=== PATIENT | female | born 1985 | race Caucasian/White ===

== ENCOUNTER 2017-03-04 14:17 | Emergency (ER) | payer OTHER, BC ==
[2017-03-04 15:12] VITALS: BP 134/85
[2017-03-04] MEDS ORDERED: Ketorolac 30 MG/ML SDV IM ONE (17:26)
[2017-03-04] MEDS ORDERED: Ondansetron 4 MG/2 ML SDV IM ONE (17:27)
[2017-03-04] MEDS ORDERED: Ondansetron 4 MG Tab.DIS PO ONE (17:32)
--- NOTE | 2017-03-05 07:43 | EDM.PDOC ---
Scribed by Eileen Montgomery 03/05/17 0742 for Meagan Tidwell NP ED HPI GENERAL MEDICAL PROBLEM - General Chief Complaint: Upper Extremity Injury/Pain Stated Complaint: R SHOULDER PAIN.WC INJ 08/2016 Time Seen by Provider: 03/04/17 17:15 Source of Information: Reports: Patient, RN, RN Notes Reviewed History Limitations: Reports: No Limitations - History of Present Illness INITIAL COMMENTS - FREE TEXT/NARRATIVE: Patient had increased pain today with nausea which is better when laying down. She always has pain. She had an injury in August at work. She has had injections. She saw orthopedic 2 weeks ago on February 22 and an injection 4 weeks ago on February 09. She was to start therapy today but she cancelled due to pain. Pain is 6/10 with nausea. Duration: Constant, Getting Worse Location: Reports: Upper Extremity, Right Quality: Reports: Ache Severity: Moderate Improves with: Reports: None Worsens with: Reports: None Associated Symptoms: Reports: No Other Symptoms Right Shoulder Pain Score (Numeric/FACES): 8 - Related Data Allergies Allergy/AdvReac Type Severity Reaction Status Date / Time egg Allergy Lightheaded Verified 03/04/17 15:21 ness latex Allergy Rash Verified 03/04/17 15:21 Milk Containing Products Allergy Stomach Verified 03/04/17 15:21 Upset Home Meds: Home Meds Sertraline [Zoloft] 150 mg PO DAILY 02/22/15 [History] Gabapentin [Neurontin] 100 mg PO BEDTIME 01/28/16 [History] PARoxetine [Paxil] 5 mg PO DAILY 02/06/16 [History] traMADol [Ultram] 50 mg PO ASDIRECTED 03/04/17 [History] Past Medical History - Past Health History Medical/Surgical History: Denies Medical/Surgical History HEENT History: Reports: Impaired Vision Cardiovascular History: Reports: Heart Murmur Other Cardiovascular History: irregular heart beat. 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: Musculoskeletal History: Reports: None Other Musculoskeletal History: restless legs Neurological History: Reports: Concussion, Seizure Psychiatric History: Reports: Anxiety, Depression, Panic Attack Endocrine/Metabolic History: Reports: None Hematologic History: Reports: Anemia Dermatologic History: Reports: None - Infectious Disease History Infectious Disease History: Reports: Chicken Pox - Past Surgical History GI Surgical History: Reports: Appendectomy Social & Family History - Family History Family Medical History: Noncontributory - Tobacco Use Smoking Status *Q: Never Smoker Second Hand Smoke Exposure: Yes - Caffeine Use Caffeine Use: Reports: None Other Caffeine Use: 2 bottles /day - Alcohol Use Days Per Week of Alcohol Use: 0 - Recreational Drug Use Recreational Drug Use: No Review of Systems - Review of Systems Review Of Systems: ROS reveals no pertinent complaints other than HPI. ED EXAM, GENERAL - Physical Exam Exam: See Below Exam Limited By: No Limitations General Appearance: Alert, WD/WN, No Apparent Distress Eye Exam: Bilateral Eye: Normal Inspection Ears: Normal External Exam, Normal Canal, Hearing Grossly Normal, Normal TMs Nose: Normal Inspection, Normal Mucosa, No Blood Throat/Mouth: Normal Inspection, Normal Lips, Normal Teeth, Normal Gums, Normal Oropharynx, Normal Voice, No Airway Compromise Head: Atraumatic, Normocephalic Neck: Normal Inspection, Supple, Non-Tender, Full Range of Motion Respiratory/Chest: No Respiratory Distress, Lungs Clear, Normal Breath Sounds, No Accessory Muscle Use, Chest Non-Tender Cardiovascular: Normal Peripheral Pulses, Regular Rate, Rhythm, No Edema, No Gallop, No JVD, No Murmur, No Rub GI/Abdominal: Normal Bowel Sounds (Female) Exam: Deferred Rectal (Female) Exam: Deferred Back Exam: Normal Inspection, Full Range of Motion, NT Extremities: Other (Range of motion decreased at right arm. Can abduct from body.) Neurological: Alert, Oriented, CN II-XII Intact, Normal Cognition, Normal Gait, Normal Reflexes, No Motor/Sensory Deficits Psychiatric: Normal Affect, Normal Mood Skin Exam: Warm, Dry, Intact, Normal Color, No Rash Lymphatic: No Adenopathy Course - Vital Signs Last Recorded V/S: Last Vital Signs Temp 97.7 F 03/04/17 15:07 Pulse 89 03/04/17 15:07 Resp 16 03/04/17 15:07 BP 134/85 03/04/17 15:07 Pulse Ox 96 03/04/17 15:07 - Orders/Labs/Meds Meds: Medications Discontinued Medications Generic Name Dose Route Start Last Admin Trade Name Freq PRN Reason Stop Dose Admin Ketorolac Tromethamine 60 mg 03/04/17 17:26 03/04/17 17:42 Toradol IM 03/04/17 17:27 60 mg ONETIME ONE Administration Ondansetron HCl 4 mg 03/04/17 17:32 03/04/17 17:41 Zofran Odt PO 03/04/17 17:33 4 mg ONETIME ONE Administration Departure - Departure Time of Disposition: 17:34 Disposition: Home, Self-Care 01 Condition: Fair Clinical Impression: Right shoulder pain Qualifiers: Chronicity: chronic Qualified Code(s): M25.511 - Pain in right shoulder; G89.29 - Other chronic pain; G89.29 - Other chronic pain - Discharge Information Instructions: Shoulder Pain, [id number], Pain Medicine Instructions, Easy-to- Read Referrals: Wild Drew MD [Primary Care Provider] - Forms: ED Department Discharge Additional Instructions: RX: [place]. RX: Zofran. Follow up with ortho and PT next week. Rest and ice the area as tolerated. I have read and agree with the documentation that has been completed regarding this visit. By signing this record, I attest that the documentation was completed in my physical presence and is an accurate record of the encounter.
== END 2017-03-04 18:29 | disposition home or self-care (01) ==
LOC: DL.ED 14:17
DX: M25.511 Pain in right shoulder (principal); G89.29 Other chronic pain; R11.0 Nausea; F41.0 Panic disorder [episodic paroxysmal anxiety]; Z77.22 Contact with and (suspected) exposure to environmental tobacco smoke (acute) (chronic); Z79.899 Other long term (current) drug therapy; Z91.011 Allergy to milk products; Z91.012 Allergy to eggs; Z91.040 Latex allergy status
CPT/HCPCS: 99282; A9270; J1885

== ENCOUNTER 2017-03-18 15:00 | Emergency (ER) | payer OTHER, BC ==
--- NOTE | 2017-03-18 15:16 | EDM.PDOC ---
ED HPI GENERAL MEDICAL PROBLEM - General Chief Complaint: Upper Extremity Injury/Pain Stated Complaint: SHOULDER IS PAINFUL, [id number] Time Seen by Provider: 03/18/17 15:15 Source of Information: Reports: Patient, Old Records, RN, RN Notes Reviewed History Limitations: Reports: No Limitations - History of Present Illness INITIAL COMMENTS - FREE TEXT/NARRATIVE: Patient presents complaining of right shoulder injury of right shoulder with rotator cuff tear by MRI. She had cortisone shot to shoulder x2 by Dr. Noriega at [facility], but they didn't help. Original injury was September 02, 2016. Patient filed a work injury at that time. No new injury. The pain just increased on its own. Quality: Reports: Ache Severity: Severe Improves with: Reports: None Worsens with: Reports: None Associated Symptoms: Reports: No Other Symptoms Right Shoulder Pain Score (Numeric/FACES): 8 - Related Data Allergies Allergy/AdvReac Type Severity Reaction Status Date / Time egg Allergy Lightheaded Verified 03/18/17 15:12 ness latex Allergy Rash Verified 03/18/17 15:12 Milk Containing Products Allergy Stomach Verified 03/18/17 15:12 Upset Home Meds: Home Meds Sertraline [Zoloft] 150 mg PO DAILY 02/22/15 [History] Gabapentin [Neurontin] 100 mg PO BEDTIME 01/28/16 [History] Past Medical History - Past Health History Medical/Surgical History: Denies Medical/Surgical History HEENT History: Reports: Impaired Vision Cardiovascular History: Reports: Heart Murmur Other Cardiovascular History: irregular heart beat. 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 History: Reports: Other (See Below) (right rotator cuff tear) Other Musculoskeletal History: restless legs Neurological History: Reports: Concussion, Seizure Psychiatric History: Reports: Anxiety, Depression, Panic Attack Endocrine/Metabolic History: Reports: None Hematologic History: Reports: Anemia Immunologic History: Reports: None Oncologic (Cancer) History: Reports: None Dermatologic History: Reports: None - Infectious Disease History Infectious Disease History: Reports: Chicken Pox - Past Surgical History Head Surgeries/Procedures: Reports: None GI Surgical History: Reports: Appendectomy Social & Family History - Family History Family Medical History: Noncontributory - Tobacco Use Smoking Status *Q: Never Smoker Second Hand Smoke Exposure: Yes - Caffeine Use Caffeine Use: Reports: Soda Other Caffeine Use: 2 bottles /day - Alcohol Use Days Per Week of Alcohol Use: 0 - Recreational Drug Use Recreational Drug Use: No Review of Systems - Review of Systems Review Of Systems: ROS reveals no pertinent complaints other than HPI. ED EXAM, GENERAL - Physical Exam Exam: See Below Exam Limited By: No Limitations General Appearance: Alert, WD/WN, No Apparent Distress Head: Atraumatic, Normocephalic Neck: Normal Inspection, Supple, Non-Tender, Full Range of Motion Respiratory/Chest: No Respiratory Distress Cardiovascular: Normal Peripheral Pulses (at bilateral upper extremities.) Extremities: Other (generalized right shoulder tenderness. No visible swelling, bruising or erythema. Right shoulder with decreased range of motion in all planes 2 degrees to pain. Visible right supraspinatous region muscle atrophy. ) Neurological: Alert, Oriented, CN II-XII Intact, Normal Cognition, Normal Gait, No Motor/Sensory Deficits Psychiatric: Normal Affect, Normal Mood Skin Exam: Warm, Dry, Intact, Normal Color, No Rash Course - Vital Signs Last Recorded V/S: Last Vital Signs Temp 36.2 C 03/18/17 15:08 Pulse 73 03/18/17 16:12 Resp 18 03/18/17 16:12 BP 129/84 03/18/17 16:12 Pulse Ox 95 03/18/17 16:12 - Orders/Labs/Meds Meds: Medications Discontinued Medications Generic Name Dose Route Start Last Admin Trade Name Freq PRN Reason Stop Dose Admin Ketorolac Tromethamine 60 mg 03/18/17 15:56 03/18/17 16:04 Toradol IM 03/18/17 15:57 60 mg ONETIME ONE Administration - Radiology Interpretation Free Text/Narrative:: MRI right shoulder report from 09/15/16 reviewed. Departure - Departure Time of Disposition: 16:03 Disposition: Home, Self-Care 01 Condition: Good Clinical Impression: Chronic right shoulder pain Right rotator cuff tear Qualifiers: Rotator cuff tear extent: unspecified tear extent Qualified Code(s): M75.101 - Unspecified rotator cuff tear or rupture of right shoulder, not specified as traumatic - Discharge Information Instructions: Shoulder Pain, [id number], Rotator Cuff Injury Referrals: PCP,None [Primary Care Provider] - Forms: ED Department Discharge Additional Instructions: RX: Naprosyn 500mg. Take with food. RX: [place] 5mg/325mg. *Do not drive while under the influence of this medication. Follow up with your primary clinic for rechecl and medication management.
[2017-03-18] MEDS ORDERED: Ketorolac 30 MG/ML SDV IM ONE (15:56)
[2017-03-18 16:12] VITALS: BP 129/84
== END 2017-03-18 16:09 | disposition home or self-care (01) ==
LOC: DL.ED 15:00
DX: M75.101 Unspecified rotator cuff tear or rupture of right shoulder, not specified as traumatic (principal); F32.9 Major depressive disorder, single episode, unspecified; Z91.012 Allergy to eggs; Z91.040 Latex allergy status; Z91.011 Allergy to milk products; Z79.899 Other long term (current) drug therapy
CPT/HCPCS: 96372; 99282; J1885

== ENCOUNTER 2017-03-27 10:43 | Emergency (ER) | payer OTHER, BC ==
[2017-03-27 15:19] VITALS: BP 120/79
--- NOTE | 2017-03-27 15:29 | EDM.PDOC ---
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 Pain is always there. It is worse with movement. Range of motion makes it worse. Decreased strength in right arm. She has a 1:00 p.m. appointment with ortho. Tylenol and Ibuprofen does not help. Duration: Constant Location: Reports: Upper Extremity, Right Quality: Reports: Ache Severity: Moderate Improves with: Reports: None Worsens with: Reports: None Associated Symptoms: Reports: No Other Symptoms Right Shoulder Pain Score (Numeric/FACES): 7 - Related Data Allergies Allergy/AdvReac Type Severity Reaction Status Date / Time egg Allergy Lightheaded Verified 03/27/17 11:03 ness latex Allergy Rash Verified 03/27/17 11:03 Milk Containing Products Allergy Stomach Verified 03/27/17 11:03 Upset Home Meds: Home Meds Sertraline [Zoloft] 150 mg PO DAILY 02/22/15 [History] Gabapentin [Neurontin] 100 mg PO BEDTIME 01/28/16 [History] Hydrocodone/Acetaminophen [Hydrocodon-Acetaminophen 5-325] 1 tab PO Q6HR PRN [History] Ibuprofen 600 mg PO ASDIRECTED PRN 03/27/17 [History] Naproxen [Naproxen] 1 tab PO BID 03/27/17 [History] Past Medical History - Past Health History Medical/Surgical History: Denies Medical/Surgical History HEENT History: Reports: Impaired Vision Other HEENT History: wears glasses Cardiovascular History: Reports: Heart Murmur Other Cardiovascular History: irregular heart beat. 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: Musculoskeletal History: Reports: Other (See Below) Other Musculoskeletal History: restless legs Neurological History: Reports: Concussion, Seizure Psychiatric History: Reports: Anxiety, Depression, Panic Attack Endocrine/Metabolic History: Reports: None Hematologic History: Reports: Anemia Immunologic History: Reports: None Oncologic (Cancer) History: Reports: None Dermatologic History: Reports: None - Infectious Disease History Infectious Disease History: Reports: Chicken Pox - Past Surgical History Head Surgeries/Procedures: Reports: None GI Surgical History: Reports: Appendectomy Social & Family History - Family History Family Medical History: Noncontributory - Tobacco Use Smoking Status *Q: Never Smoker Second Hand Smoke Exposure: No - Caffeine Use Caffeine Use: Reports: Soda Other Caffeine Use: 2 bottles /day - Alcohol Use Days Per Week of Alcohol Use: 0 - Recreational Drug Use Recreational Drug Use: No Review of Systems - Review of Systems Review Of Systems: ROS reveals no pertinent complaints other than HPI. ED EXAM, GENERAL - Physical Exam Exam: See Below Exam Limited By: No Limitations General Appearance: Moderate Distress Eye Exam: Bilateral Eye: Normal Inspection Ears: Normal External Exam, Normal Canal, Hearing Grossly Normal, Normal TMs Nose: Normal Inspection, Normal Mucosa, No Blood Throat/Mouth: Normal Inspection, Normal Lips, Normal Teeth, Normal Gums, Normal Oropharynx, Normal Voice, No Airway Compromise Head: Atraumatic, Normocephalic Neck: Normal Inspection, Supple, Non-Tender, Full Range of Motion Respiratory/Chest: No Respiratory Distress, Lungs Clear, Normal Breath Sounds, No Accessory Muscle Use, Chest Non-Tender Cardiovascular: Normal Peripheral Pulses, Regular Rate, Rhythm, No Edema, No Gallop, No JVD, No Murmur, No Rub GI/Abdominal: Normal Bowel Sounds, Soft, Non-Tender, No Organomegaly, No Distention, No Abnormal Bruit, No Mass (Female) Exam: Deferred Rectal (Female) Exam: Deferred Back Exam: Normal Inspection, Full Range of Motion, NT Extremities: Other (Decreased range of motion right arm. ) Neurological: Alert, Oriented, CN II-XII Intact, Normal Cognition, Normal Gait, Normal Reflexes, No Motor/Sensory Deficits Skin Exam: Warm, Dry, Intact, Normal Color, No Rash Lymphatic: No Adenopathy Course - Vital Signs Last Recorded V/S: Last Vital Signs Temp 97.8 F 03/27/17 15:19 Pulse 76 03/27/17 15:19 Resp 18 03/27/17 15:19 BP 120/79 03/27/17 15:19 Pulse Ox 96 03/27/17 15:19 Departure - Departure Time of Disposition: 15:27 Disposition: Home, Self-Care 01 Condition: Fair Clinical Impression: Chronic right shoulder pain Right shoulder pain Qualifiers: Chronicity: chronic Qualified Code(s): M25.511 - Pain in right shoulder - Discharge Information Instructions: Shoulder Pain, [id number], Pain Medicine Instructions, Easy-to- Read Forms: ED Department Discharge Additional Instructions: Ice, heat, rest RX: Hydrocodone/APAP, Cyclobenzaprine Follow up with your appointment with ortho tomorrow
== END 2017-03-27 15:32 | disposition home or self-care (01) ==
LOC: DL.ED 10:43
DX: G89.29 Other chronic pain (principal); M25.511 Pain in right shoulder; J45.909 Unspecified asthma, uncomplicated; F41.0 Panic disorder [episodic paroxysmal anxiety]; Z79.899 Other long term (current) drug therapy; Z91.011 Allergy to milk products; Z91.012 Allergy to eggs
CPT/HCPCS: 99283

== ENCOUNTER 2018-05-24 23:43 | Emergency (ER) | payer BC ==
[2018-05-25 00:53] VITALS: BP 147/108
--- NOTE | 2018-05-25 01:11 | EDM.PDOC ---
<Lito Rosenthal M - Last Filed: 05/25/18 01:59> ED HPI GENERAL MEDICAL PROBLEM - General Chief Complaint: Back Pain or Injury Stated Complaint: SLIPPED AND FELL ON ICE [id number] Time Seen by Provider: 05/25/18 01:00 Source of Information: Reports: Patient History Limitations: Reports: No Limitations - History of Present Illness INITIAL COMMENTS - FREE TEXT/NARRATIVE: This 32 yo female patient was brought to the ED by her due to lower back and buttock pain after falling down her steps. The patient reports she attempted to go to work but was unable to work due to increased pain with movement. Onset Date: 05/24/18 Onset Time: 22:30 Location: Reports: Back, Pelvis Quality: Reports: Ache, Sharp, Throbbing Severity: Moderate Improves with: Reports: Immobilization Worsens with: Reports: Movement Context: Reports: Other (ground level fall) Associated Symptoms: Reports: No Other Symptoms Lower Back Pain Score (Numeric/FACES): 6 - Related Data Allergies Allergy/AdvReac Type Severity Reaction Status Date / Time egg Allergy Lightheaded Verified 05/25/18 00:51 ness latex Allergy Rash Verified 05/25/18 00:51 Milk Containing Products Allergy Stomach Verified 05/25/18 00:51 Upset Home Meds: Home Meds Sertraline [Zoloft] 150 mg PO DAILY 02/22/15 [History] Gabapentin [Neurontin] 100 mg PO BEDTIME 01/28/16 [History] Hydrocodone/Acetaminophen [Hydrocodon-Acetaminophen 5-325] 1 tab PO Q6HR PRN [History] Ibuprofen 600 mg PO ASDIRECTED PRN 03/27/17 [History] Naproxen 1 tab PO BID 03/27/17 [History] Cyclobenzaprine [Flexeril] 5 - 10 mg PO TID #21 tab 05/25/18 [Rx] Hydrocodone/Acetaminophen [Hydrocodon-Acetaminophn 10-325] 0.5 - 1 tab PO Q8H PRN #9 tablet 05/25/18 [Rx] Past Medical History - Past Health History Medical/Surgical History: Denies Medical/Surgical History HEENT History: Reports: Impaired Vision Other HEENT History: wears glasses Cardiovascular History: Reports: Heart Murmur Other Cardiovascular History: irregular heart beat. 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 History: Reports: Other (See Below) Other Musculoskeletal History: restless legs Neurological History: Reports: Concussion, Seizure Psychiatric History: Reports: Anxiety, Depression, Panic Attack Endocrine/Metabolic History: Reports: None Hematologic History: Reports: Anemia Immunologic History: Reports: None Oncologic (Cancer) History: Reports: None Dermatologic History: Reports: None - Infectious Disease History Infectious Disease History: Reports: Chicken Pox - Past Surgical History Head Surgeries/Procedures: Reports: None GI Surgical History: Reports: Appendectomy Musculoskeletal Surgical History: Reports: Shoulder Surgery Social & Family History - Family History Family Medical History: Noncontributory - Tobacco Use Smoking Status *Q: Never Smoker - Caffeine Use Caffeine Use: Reports: Soda Other Caffeine Use: 2 bottles /day - Recreational Drug Use Recreational Drug Use: No ED ROS GENERAL - Review of Systems Review Of Systems: ROS reveals no pertinent complaints other than HPI. ED EXAM,LOWER BACK PAIN/INJURY - Physical Exam Exam: See Below Exam Limited By: No Limitations General Appearance: Alert, WD/WN, Moderate Distress Eye Exam: Bilateral Eye: EOMI, Nystagmus, PERRL Ears: Normal External Exam, Normal Canal, Hearing Grossly Normal, Normal TMs Nose: Normal Inspection, Normal Mucosa, No Blood Throat/Mouth: Normal Inspection, Normal Lips, Normal Teeth, Normal Gums, Normal Oropharynx, Normal Voice, No Airway Compromise Head: Atraumatic Neck: Normal Inspection, Supple, Non-Tender, Full Range of Motion Respiratory/Chest: No Respiratory Distress, Lungs Clear, Normal Breath Sounds, No Accessory Muscle Use, Chest Non-Tender Cardiovascular: Normal Peripheral Pulses, Regular Rate, Rhythm, No Edema, No Gallop, No JVD, No Murmur, No Rub GI/Abdominal: Normal Bowel Sounds, Soft, Non-Tender, No Organomegaly, No Distention, No Abnormal Bruit, No Mass (Female) Exam: Deferred Rectal (Female) Exam: Deferred Back Exam: Paraspinal Tenderness, Vertebral Tenderness, Other (lower back and posterior pelvis) Extremities: Normal Inspection, Normal Range of Motion, Non-Tender, No Pedal Edema, Normal Capillary Refill Neurological: Alert, Normal Mood/Affect, Normal Dorsiflexion, CN II-XII Intact, Normal Plantar Flexion, Normal Gait, Normal Reflexes, No Motor/Sensory Deficits , Oriented x 3 Psychiatric: Normal Affect, Normal Mood Skin Exam: Warm, Dry, Intact, Normal Color, No Rash Lymphatic: No Adenopathy Course - Vital Signs Last Recorded V/S: Last Vital Signs Temp 36.3 C 05/25/18 00:51 Pulse 110 H 05/25/18 00:51 Resp 18 05/25/18 00:51 BP 147/108 H 05/25/18 00:51 Pulse Ox 97 05/25/18 00:51 - Orders/Labs/Meds Orders: Active Orders 24 hr Category Date Time Status Lumbar Spine 2 or 3V [CR] Urgent Exams 05/25/18 01:25 Taken Pelvis 1V or 2V [CR] Urgent Exams 05/25/18 01:25 Taken Sacrum Coccyx Min 2V [CR] Urgent Exams 05/25/18 01:25 Taken CULTURE URINE [RM] Stat Lab 05/25/18 01:04 Received Labs: Laboratory Tests 05/25/18 05/25/18 Range/Units 01:04 01:04 Urine Color Yellow (YELLOW) Urine Appearance Slightly cloudy (CLEAR) Urine pH 6.5 (5.0-9.0) Ur Specific [place] >= 1.030 (1.005-1.030) Urine Protein Negative (NEGATIVE) Urine Glucose (UA) Negative (NEGATIVE) Urine Ketones Negative (NEGATIVE) Urine Occult Blood Negative (NEGATIVE) Urine Nitrite Negative (NEGATIVE) Urine Bilirubin Negative (NEGATIVE) Urine Urobilinogen 0.2 (0.2-1.0) mg/dL Ur Leukocyte Esterase Small H (NEGATIVE) Urine RBC 0-5 /HPF Urine WBC 30-40 H (0-5/HPF) /HPF Ur Epithelial Cells Moderate H /HPF Urine Bacteria Many H (0-FEW/HPF) /HPF Urine Mucus Many H /LPF Urinalysis Comment Urine HCG, Qual Negative Meds: Medications Discontinued Medications Generic Name Dose Route Start Last Admin Trade Name Freq PRN Reason Stop Dose Admin Lidocaine 0 mg 05/25/18 02:43 Lidoderm 5% TOP 05/25/18 02:44 ONETIME ONE Departure - Departure Disposition: Home, Self-Care 01 Clinical Impression: Contusion of back, Back strain - Discharge Information Prescriptions: Cyclobenzaprine [Flexeril] 5 - 10 mg PO TID #21 tab Hydrocodone/Acetaminophen [Hydrocodon-Acetaminophn 10-325] 0.5 - 1 tab PO Q8H PRN #9 tablet PRN Reason: Pain Instructions: Back Pain, Adult, [id number], Contusion, [id number] Forms: ED Department Discharge <Ethan Blackman - Last Filed: 05/25/18 02:55> Departure - Departure Time of Disposition: 02:49 - Discharge Information *PRESCRIPTION DRUG MONITORING PROGRAM REVIEWED*: No *COPY OF PRESCRIPTION DRUG MONITORING REPORT IN PATIENT DARCIE: No - Problem List & Annotations (1) Contusion of back SNOMED Code(s): 29525459 Code(s): S20.229A - CONTUSION OF UNSPECIFIED BACK WALL OF THORAX, INIT ENCNTR Status: Acute Qualifiers: Encounter type: initial encounter Laterality: unspecified laterality Qualified Code(s): S20.229A - Contusion of unspecified back wall of thorax, initial encounter (2) Back strain SNOMED Code(s): 765811433 Code(s): S39.012A - STRAIN OF MUSCLE, FASCIA AND TENDON OF LOWER BACK, INIT Status: Acute Qualifiers: Encounter type: initial encounter Qualified Code(s): S39.012A - Strain of muscle, fascia and tendon of lower back, initial encounter - Problem List Review Problem List Initiated/Reviewed/Updated: Yes
[2018-05-25] MEDS ORDERED: Lidocaine 5% 700 MG Patch TOP ONE (02:43)
== END 2018-05-25 03:10 | disposition home or self-care (01) ==
LOC: DL.ED 23:43
DX: S39.012A Strain of muscle, fascia and tendon of lower back, initial encounter (principal); F41.9 Anxiety disorder, unspecified; F32.9 Major depressive disorder, single episode, unspecified; Z79.899 Other long term (current) drug therapy; Z91.012 Allergy to eggs; Z91.018 Allergy to other foods; Z91.011 Allergy to milk products; W00.0XXA Fall on same level due to ice and snow, initial encounter
CPT/HCPCS: 72100; 72170; 72220; 81001; 81025; 87086; 87088; 87186; 99283; A9270

== ENCOUNTER 2023-01-08 17:37 | Emergency (ER) | payer BC ==
[2023-01-08] MEDS ORDERED: Acetaminophen 500 MG Tab PO ONE (20:54)
[2023-01-08] MEDS ORDERED: Ketorolac 30 MG/ML SDV IM ONE (20:54)
[2023-01-08 21:13] VITALS: BP 131/86; PULSE 83
== END 2023-01-08 21:15 | disposition home or self-care (01) ==
LOC: DL.ED 17:37
DX: S49.92XA Unspecified injury of left shoulder and upper arm, initial encounter (principal); J45.909 Unspecified asthma, uncomplicated; Z91.012 Allergy to eggs; Z91.040 Latex allergy status; Z91.011 Allergy to milk products; Z79.899 Other long term (current) drug therapy; W00.0XXA Fall on same level due to ice and snow, initial encounter; Y93.02 Activity, running
CPT/HCPCS: 73030-LT; 96372; 99282; 99283; A9270-GY; J1885

== ENCOUNTER 2024-12-02 09:38 | Emergency (ER) | payer OTHER, BC ==
[2024-12-02 09:52] VITALS: BP 179/77; PULSE 86
[2024-12-02] MEDS: Take Home: Cyclobenzaprine 10 MG Tab, 4 Tab Pack PO ONE (10:35)
== END 2024-12-02 10:45 | disposition home or self-care (01) ==
LOC: DL.ED 09:38
DX: M54.50 Low back pain, unspecified (principal); Z91.012 Allergy to eggs; Z91.040 Latex allergy status; Z91.011 Allergy to milk products; Z79.899 Other long term (current) drug therapy
CPT/HCPCS: 99283; A9270